=== PATIENT | female | born 1930 | race African-American/Black ===

== ENCOUNTER 2017-03-26 07:36 | Inpatient (IN) | payer MEDICAID, MEDICARE ==
[~2017-03-26] VITALS: Ht 165.1 cm; Wt 68.0 kg
[~2017-03-26 07:36] MED LIST: ACET-3161 GT; ACETAMINOPHEN/COD; ALBU18HF2 INH; BENA40TA3 PO; CALC1TAB51; CALC1TAB96 PO; CLON0.1T PO; DIAZ10TA4 PO; HYDR-4135 PO; HYDR25TA PO; LEVO100T12 PO; OMEP40CA34 PO; PHEN100C12 PO; POTA20TA82 PO; ZOLP10TA6 PO
[2017-03-26] MEDS ORDERED: MORPHINE SULFATE 4 MG/ML CPJ (NOT FOR IM USE) IV STA (08:03)
[2017-03-26] MEDS ORDERED: SODIUM CHLORIDE 0.9% 500 ML IV ONE (08:04)
[2017-03-26 08:23] LABS: BASOPHILS % 0.4 % (0.0-2.0); EOSINOPHILS % 2.7 % (0.0-5.0); HEMATOCRIT. 38.4 % (36.0-48.0); HEMOGLOBIN. 12.8 g/dL (12.0-16.0); LYMPHOCYTES % 15.4 % (20.0-50.0); MEAN CORPUSCULAR HEMOGLOBIN 31.1 pg (28.0-32.0); MEAN CORPUSCULAR VOLUME 93.3 fL (81.0-99.0); MEAN PLATELET VOLUME 8.5 fl (7.4-10.4); MONOCYTES % 5.3 % (2.0-8.0); NEUTROPHILS % 76.2 % (40.0-76.0); PLATELET 304 x1000/uL (130-400); RED BLOOD CELL COUNT 4.12 mill/uL (4.2-5.4); RED CELL DISTRIBUTION WIDTH 15.2 % (11.6-14.6)
[2017-03-26 08:25] LABS: CHLORIDE 106 mEq/L (98-107)
[2017-03-26 08:26] LABS: INR 1.1; PROTHROMBIN TIME 11.7 sec
[2017-03-26] MEDS ORDERED: ONDANSETRON HCL 4MG/2ML VIAL IV ONE (08:30)
[2017-03-26 08:33] LABS: CARBON DIOXIDE 24 mEq/L (21-32)
[2017-03-26 12:00] VITALS: BP 160/81
[2017-03-26] MEDS ORDERED: ASPI-1159 PO (12:50)
[2017-03-26] MEDS ORDERED: QUETIAPINE PO (12:50)
[2017-03-26] MEDS ORDERED: DIAZ10TA4 PO (12:52)
[2017-03-26] MEDS ORDERED: BENA40TA3 PO (12:52)
[2017-03-26] MEDS ORDERED: ROSU20TA PO (13:02)
[2017-03-26] MEDS ORDERED: LEVO100T9 PO (13:02)
[2017-03-26] MEDS ORDERED: SULF1TAB47 PO (13:02)
[2017-03-26] MEDS ORDERED: CLON0.1T PO (13:02)
[2017-03-26] MEDS ORDERED: AMIT100T2 PO (13:02)
[2017-03-26] MEDS ORDERED: CARV3.1242 PO (13:02)
[2017-03-26] MEDS ORDERED: ONDANSETRON HCL 4MG TABLET PO PRN (14:00)
[2017-03-26] MEDS ORDERED: MORPHINE SULFATE 2 MG/ML CPJ (NOT FOR IM USE) IV PRN (15:00)
[2017-03-26] MEDS: DEXT 5%/0.45% NACL 1000ML 1,000 ML IV SCH (15:53)
[2017-03-26] MEDS: ONDANSETRON HCL 4MG/2ML VIAL IV PRN (15:57)
[2017-03-26 16:00] VITALS: BP 190/97
[2017-03-26] MEDS: IPRATROPIUM/ALBUTEROL 0.5-3(2.5)MG/3ML NEB HHN SCH ×3 (16:10→23:49)
[2017-03-26] MEDS ORDERED: CLONIDINE HCL 0.2MG/24HR PATCH TD SCH (17:00)
[2017-03-26 20:00] VITALS: BP 195/90
[2017-03-26] MEDS: ENOXAPARIN 30MG/0.3ML SYR SUBCUT SCH (22:57)
[2017-03-27] VITALS: BP 142/72
[2017-03-27] MEDS: ONDANSETRON HCL 4MG/2ML VIAL IV PRN (00:21)
[2017-03-27] MEDS: DEXT 5%/0.45% NACL 1000ML 1,000 ML IV SCH ×2 (00:51→09:46)
[2017-03-27] MEDS: MORPHINE SULFATE 4 MG/ML CPJ (NOT FOR IM USE) IV PRN (01:00)
[2017-03-27 04:00] VITALS: BP 126/63
[2017-03-27] MEDS: IPRATROPIUM/ALBUTEROL 0.5-3(2.5)MG/3ML NEB HHN SCH ×5 (04:12→20:37)
[2017-03-27 08:00] VITALS: BP 128/64
[2017-03-27 12:00] VITALS: BP 120/61
[2017-03-27 16:00] VITALS: BP 126/59
[2017-03-27 20:00] VITALS: BP 153/68
[2017-03-27] MEDS: ENOXAPARIN 30MG/0.3ML SYR SUBCUT SCH (22:31)
[2017-03-28] VITALS: BP 149/69
[2017-03-28] MEDS: IPRATROPIUM/ALBUTEROL 0.5-3(2.5)MG/3ML NEB HHN SCH ×6 (00:11→21:45)
[2017-03-28] MEDS: DEXT 5%/0.45% NACL 1000ML 1,000 ML IV SCH ×2 (01:57→13:34)
[2017-03-28 04:00] VITALS: BP 148/68
[2017-03-28 06:47] LABS: BASOPHILS % 0.8 % (0.0-2.0); EOSINOPHILS % 7.3 % (0.0-5.0); HEMATOCRIT. 29.6 % (36.0-48.0); HEMOGLOBIN. 9.8 g/dL (12.0-16.0); LYMPHOCYTES % 37.2 % (20.0-50.0); MEAN CORPUSCULAR HEMOGLOBIN 30.8 pg (28.0-32.0); MEAN PLATELET VOLUME 8.5 fl (7.4-10.4); MONOCYTES % 8.1 % (2.0-8.0); NEUTROPHILS % 46.6 % (40.0-76.0); PLATELET 217 x1000/uL (130-400); RED BLOOD CELL COUNT 3.19 mill/uL (4.2-5.4); RED CELL DISTRIBUTION WIDTH 14.4 % (11.6-14.6)
[2017-03-28 07:14] LABS: CARBON DIOXIDE 23 mEq/L (21-32); CHLORIDE 111 mEq/L (98-107); PHOSPHORUS 2.7 mg/dL (2.5-4.9)
[2017-03-28 08:00] VITALS: BP 188/86
[2017-03-28 12:00] VITALS: BP 188/78
[2017-03-28 16:00] VITALS: BP 181/87
[2017-03-28] MEDS ORDERED: LABETALOL 5MG/ML SYR 20 MG/4 ML SYRINGE IV STA (19:11)
[2017-03-28 20:00] VITALS: BP 178/84
[2017-03-28] MEDS: BENAZEPRIL 20MG TABLET PO SCH (21:17)
[2017-03-28] MEDS: PHENYTOIN SODIUM EXTENDED 100MG CAPSULE PO SCH (21:17)
[2017-03-28] MEDS: ENOXAPARIN 30MG/0.3ML SYR SUBCUT SCH (21:18)
[2017-03-28] MEDS: HYDRALAZINE HCL 50MG TABLET PO SCH (21:18)
[2017-03-29] VITALS (7 sets, daily range): BP systolic 140–169; BP diastolic 67–87
[2017-03-29] MEDS: IPRATROPIUM/ALBUTEROL 0.5-3(2.5)MG/3ML NEB HHN SCH ×5 (01:17→21:12)
[2017-03-29] MEDS: MORPHINE SULFATE 4 MG/ML CPJ (NOT FOR IM USE) IV PRN ×3 (02:21→23:54)
[2017-03-29] MEDS: PHENYTOIN SODIUM EXTENDED 100MG CAPSULE PO SCH ×3 (06:32→21:50)
[2017-03-29] MEDS: HYDRALAZINE HCL 50MG TABLET PO SCH ×3 (06:32→21:49)
[2017-03-29] MEDS: DEXT 5%/0.45% NACL 1000ML 1,000 ML IV SCH (06:33)
[2017-03-29] MEDS: BENAZEPRIL 20MG TABLET PO SCH (09:13)
[2017-03-29] MEDS ORDERED: ZOLPIDEM TARTRATE 5MG TABLET PO PRN (21:00)
[2017-03-29] MEDS: ENOXAPARIN 30MG/0.3ML SYR SUBCUT SCH (21:49)
[2017-03-30] MEDS: IPRATROPIUM/ALBUTEROL 0.5-3(2.5)MG/3ML NEB HHN SCH ×4 (01:50→12:45)
[2017-03-30 04:00] VITALS: BP 168/89
[2017-03-30] MEDS: DEXT 5%/0.45% NACL 1000ML 1,000 ML IV SCH (05:33)
[2017-03-30] MEDS: HYDRALAZINE HCL 50MG TABLET PO SCH (06:01)
[2017-03-30] MEDS: PHENYTOIN SODIUM EXTENDED 100MG CAPSULE PO SCH (06:01)
[2017-03-30 06:59] LABS: EOSINOPHILS % 5.6 % (0.0-5.0); HEMATOCRIT. 30.5 % (36.0-48.0); HEMOGLOBIN. 10.3 g/dL (12.0-16.0); LYMPHOCYTES % 41.4 % (20.0-50.0); MEAN CORPUSCULAR VOLUME 92.2 fL (81.0-99.0); MEAN PLATELET VOLUME 8.4 fl (7.4-10.4); PLATELET 256 x1000/uL (130-400); RED BLOOD CELL COUNT 3.31 mill/uL (4.2-5.4); RED CELL DISTRIBUTION WIDTH 14.3 % (11.6-14.6)
[2017-03-30 07:55] LABS: CHLORIDE 109 mEq/L (98-107)
[2017-03-30 08:15] LABS: CARBON DIOXIDE 24 mEq/L (21-32)
[2017-03-30] MEDS: BENAZEPRIL 20MG TABLET PO SCH (09:14)
[2017-03-30 12:35] VITALS: BP 166/82
[2017-03-30 13:18] VITALS: BP 166/82
[2017-03-30] MEDS: MORPHINE SULFATE 4 MG/ML CPJ (NOT FOR IM USE) IV PRN (13:18)
== END 2017-03-30 14:30 | disposition home or self-care (01) | DRG 389 ==
LOC: ER 07:36 → 6EST 10:05 → ENRESERV 10:33
PROVIDERS: ADMIT Internal Medicine; ATTEND Internal Medicine
DX: K56.60 Unspecified intestinal obstruction (principal); J98.11 Atelectasis; R18.8 Other ascites; M19.90 Unspecified osteoarthritis, unspecified site; J44.9 Chronic obstructive pulmonary disease, unspecified; I10 Essential (primary) hypertension; G40.909 Epilepsy, unspecified, not intractable, without status epilepticus; E03.9 Hypothyroidism, unspecified; M54.16 Radiculopathy, lumbar region; F41.9 Anxiety disorder, unspecified; F32.9 Major depressive disorder, single episode, unspecified; M81.0 Age-related osteoporosis without current pathological fracture; D64.9 Anemia, unspecified; E87.6 Hypokalemia; G47.00 Insomnia, unspecified; K56.7 Ileus, unspecified; Z96.659 Presence of unspecified artificial knee joint; G89.29 Other chronic pain; R51 Headache; M54.5 Low back pain; Z88.8 Allergy status to other drugs, medicaments and biological substances; M17.9 Osteoarthritis of knee, unspecified; Z79.899 Other long term (current) drug therapy
CPT/HCPCS: 36415; 74000; 74176; 80048; 80053; 82270; 83690; 83735; 84100; 85025; 85610; 85651; 94640; 96374; 96375; 97162; 99285; C1893; J1650; J2270; J2405; J3490; J7030; J7620

== ENCOUNTER 2018-04-04 16:55 | Inpatient (IN) | payer MEDICARE ==
[~2018-04-04] VITALS: Ht 165.1 cm; Wt 63.5 kg
[~2018-04-04 16:55] MED LIST changes: -ACETAMINOPHEN/COD; -ALBU18HF2 INH; +AMIT100T2 PO; -CALC1TAB51; -CALC1TAB96 PO; -OMEP40CA34 PO; +QUETIAPINE PO; -ZOLP10TA6 PO
[2018-04-04] MEDS ORDERED: DIPHENHYDRAMINE 50MG/ML VIAL IV PRN (19:30)
[2018-04-04 20:00] VITALS: BP 168/87
[2018-04-04] MEDS ORDERED: NIFEDIPINE XL 60MG TAB PO SCH (21:00)
[2018-04-04] MEDS ORDERED: NIFEDIPINE XL 30MG TAB PO SCH (21:00)
[2018-04-04] MEDS: LACTULOSE 20G/30ML UDC PO SCH (21:33)
[2018-04-04] MEDS: POLYETHYLENE GLYCOL 3350 (17GM) 1 DOSE PACK PO SCH (21:34)
[2018-04-04] MEDS: AMITRIPTYLINE 50MG TABLET PO SCH (21:34)
[2018-04-04] MEDS: NIFEDIPINE XL 60MG TAB PO SCH (21:35)
[2018-04-04] MEDS: ENOXAPARIN 40MG/0.4ML SYR SUBCUT SCH (21:35)
[2018-04-04] MEDS: PHENYTOIN SODIUM EXTENDED 100MG CAPSULE PO SCH (21:36)
[2018-04-04] MEDS: HYDRALAZINE HCL 50MG TABLET PO SCH (21:36)
[2018-04-04] MEDS: CLONIDINE 0.1MG TABLET PO SCH (22:44)
[2018-04-05] MEDS: PHENYTOIN SODIUM EXTENDED 100MG CAPSULE PO SCH ×3 (06:00→22:48)
[2018-04-05] MEDS: CLONIDINE 0.1MG TABLET PO SCH ×3 (06:00→22:00)
[2018-04-05] MEDS: HYDRALAZINE HCL 50MG TABLET PO SCH ×3 (06:00→22:00)
[2018-04-05] MEDS: LEVOTHYROXINE SODIUM 100MCG TABLET PO SCH (06:25)
[2018-04-05 08:00] VITALS: BP 132/56
[2018-04-05] MEDS: DOCUSATE SODIUM 100MG CAPSULE PO SCH ×2 (09:00→18:28)
[2018-04-05] MEDS: LACTULOSE 20G/30ML UDC PO SCH ×4 (09:00→22:51)
[2018-04-05 09:25] LABS: BASOPHILS % 1.8 % (0.0-2.0); EOSINOPHILS % 2.8 % (0.0-5.0); HEMATOCRIT. 36.3 % (36.0-48.0); HEMOGLOBIN. 11.8 g/dL (12.0-16.0); LYMPHOCYTES % 36.4 % (20.0-50.0); MEAN CORPUSCULAR HEMOGLOBIN 30.4 pg (28.0-32.0); MEAN CORPUSCULAR VOLUME 93.6 fL (81.0-99.0); MEAN PLATELET VOLUME 8.7 fl (7.4-10.4); MONOCYTES % 5.7 % (2.0-8.0); NEUTROPHILS % 53.3 % (40.0-76.0); PLATELET 407 x1000/uL (130-400); RED BLOOD CELL COUNT 3.88 mill/uL (4.2-5.4); RED CELL DISTRIBUTION WIDTH 15.4 % (11.6-14.6)
[2018-04-05] MEDS: NIFEDIPINE XL 60MG TAB PO SCH ×2 (09:41→21:00)
[2018-04-05] MEDS: BENAZEPRIL 20MG TABLET PO SCH (09:42)
[2018-04-05] MEDS: CYANOCOBALAMIN 1000MCG TABLET PO SCH (09:42)
[2018-04-05] MEDS: PREDNISONE 20MG TABLET PO SCH (09:42)
[2018-04-05] MEDS: QUETIAPINE FUMARATE 25MG TABLET PO SCH (09:43)
[2018-04-05 10:56] LABS: CHLORIDE 108 mEq/L (98-107)
[2018-04-05] MEDS ORDERED: QUETIAPINE FUMARATE 100MG TABLET PO SCH (17:00)
[2018-04-05 20:00] VITALS: BP 117/50
[2018-04-05] MEDS: POLYETHYLENE GLYCOL 3350 (17GM) 1 DOSE PACK PO SCH (21:00)
[2018-04-05] MEDS: AMITRIPTYLINE 50MG TABLET PO SCH (22:48)
[2018-04-05] MEDS: ENOXAPARIN 40MG/0.4ML SYR SUBCUT SCH (22:50)
[2018-04-05 22:53] LABS: CLARITY URINE CLEAR (CLEAR); COLOR URINE YELLOW (YELLOW); KETONES URINE NEGATIVE (NEGATIVE); LEUKOCYTE ESTERASE URINE TRACE (NEGATIVE); NITRITE URINE NEGATIVE (NEGATIVE); OCCULT BLOOD URINE NEGATIVE (NEGATIVE); PROTEIN URINE NEGATIVE (NEGATIVE); SPECIFIC GRAVITY URINE 1.017 (1.005-1.030); UROBILINOGEN URINE 0.2 E.U./dL (0.2-1.0)
[2018-04-06] MEDS: LEVOTHYROXINE SODIUM 100MCG TABLET PO SCH (05:55)
[2018-04-06] MEDS: PHENYTOIN SODIUM EXTENDED 100MG CAPSULE PO SCH ×3 (05:55→21:52)
[2018-04-06] MEDS: CLONIDINE 0.1MG TABLET PO SCH ×3 (05:55→21:53)
[2018-04-06] MEDS: HYDRALAZINE HCL 50MG TABLET PO SCH ×3 (05:56→21:53)
[2018-04-06 06:48] LABS: BASOPHILS % 2.6 % (0.0-2.0); EOSINOPHILS % 2.7 % (0.0-5.0); HEMATOCRIT. 33.8 % (36.0-48.0); HEMOGLOBIN. 11.4 g/dL (12.0-16.0); MEAN CORPUSCULAR HEMOGLOBIN 31.3 pg (28.0-32.0); MEAN CORPUSCULAR VOLUME 92.7 fL (81.0-99.0); MEAN PLATELET VOLUME 8.7 fl (7.4-10.4); MONOCYTES % 6.2 % (2.0-8.0); NEUTROPHILS % 47.5 % (40.0-76.0); PLATELET 425 x1000/uL (130-400); RED BLOOD CELL COUNT 3.65 mill/uL (4.2-5.4); RED CELL DISTRIBUTION WIDTH 14.7 % (11.6-14.6)
[2018-04-06 07:20] LABS: CHLORIDE 106 mEq/L (98-107)
[2018-04-06 08:00] VITALS: BP 136/67
[2018-04-06] MEDS: DOCUSATE SODIUM 100MG CAPSULE PO SCH ×2 (09:53→16:55)
[2018-04-06] MEDS: PREDNISONE 20MG TABLET PO SCH (09:53)
[2018-04-06] MEDS: BENAZEPRIL 20MG TABLET PO SCH (09:54)
[2018-04-06] MEDS: LACTULOSE 20G/30ML UDC PO SCH ×4 (09:54→21:51)
[2018-04-06] MEDS: QUETIAPINE FUMARATE 25MG TABLET PO SCH (09:54)
[2018-04-06] MEDS: CYANOCOBALAMIN 1000MCG TABLET PO SCH (09:54)
[2018-04-06] MEDS: NIFEDIPINE XL 60MG TAB PO SCH ×2 (10:49→21:00)
[2018-04-06] MEDS: HALOPERIDOL 1MG TABLET PO PRN (18:11)
[2018-04-06 20:00] VITALS: BP 142/68
[2018-04-06] MEDS: POLYETHYLENE GLYCOL 3350 (17GM) 1 DOSE PACK PO SCH (21:00)
[2018-04-06] MEDS: ENOXAPARIN 40MG/0.4ML SYR SUBCUT SCH (21:51)
[2018-04-06] MEDS: QUETIAPINE FUMARATE 100MG TABLET PO SCH (21:52)
[2018-04-06] MEDS: AMITRIPTYLINE 50MG TABLET PO SCH (21:52)
[2018-04-07] MEDS: HYDROCODONE/ACETAMINOPHEN 5/325MG TABLET PO PRN (01:24)
[2018-04-07] MEDS: HYDRALAZINE HCL 50MG TABLET PO SCH ×3 (05:58→22:00)
[2018-04-07] MEDS: PHENYTOIN SODIUM EXTENDED 100MG CAPSULE PO SCH ×3 (05:58→22:15)
[2018-04-07] MEDS: CLONIDINE 0.1MG TABLET PO SCH ×3 (05:59→22:00)
[2018-04-07] MEDS: LEVOTHYROXINE SODIUM 100MCG TABLET PO SCH (05:59)
[2018-04-07 07:54] LABS: BASOPHILS % 1.4 % (0.0-2.0); EOSINOPHILS % 3.6 % (0.0-5.0); HEMATOCRIT. 33.8 % (36.0-48.0); HEMOGLOBIN. 11.3 g/dL (12.0-16.0); MEAN CORPUSCULAR HEMOGLOBIN 30.9 pg (28.0-32.0); MEAN CORPUSCULAR VOLUME 92.6 fL (81.0-99.0); MEAN PLATELET VOLUME 8.5 fl (7.4-10.4); MONOCYTES % 6.5 % (2.0-8.0); NEUTROPHILS % 51.5 % (40.0-76.0); PLATELET 404 x1000/uL (130-400); RED BLOOD CELL COUNT 3.65 mill/uL (4.2-5.4); RED CELL DISTRIBUTION WIDTH 14.9 % (11.6-14.6)
[2018-04-07 08:00] VITALS: BP 114/59
[2018-04-07 08:20] LABS: CHLORIDE 107 mEq/L (98-107)
[2018-04-07 08:27] LABS: PHOSPHORUS 3.6 mg/dL (2.5-4.9)
[2018-04-07 08:28] LABS: HDL CHOLESTEROL 72 mg/dL (40-59); LDL CHOLESTEROL 97 mg/dL (5-100)
[2018-04-07 08:33] LABS: TOTAL IRON BINDING CAPACITY 284 ug/dL (250-450)
[2018-04-07] MEDS: BENAZEPRIL 20MG TABLET PO SCH (08:44)
[2018-04-07] MEDS: DOCUSATE SODIUM 100MG CAPSULE PO SCH ×2 (08:44→17:00)
[2018-04-07] MEDS: CYANOCOBALAMIN 1000MCG TABLET PO SCH (08:45)
[2018-04-07] MEDS: QUETIAPINE FUMARATE 25MG TABLET PO SCH (08:45)
[2018-04-07] MEDS: PREDNISONE 20MG TABLET PO SCH (08:45)
[2018-04-07] MEDS: NIFEDIPINE XL 60MG TAB PO SCH ×2 (08:45→21:00)
[2018-04-07] MEDS: LACTULOSE 20G/30ML UDC PO SCH ×4 (08:50→21:00)
[2018-04-07 09:40] LABS: FOLIC ACID (FOLATE) SERUM 5.7 ng/mL (>5.38)
[2018-04-07 20:00] VITALS: BP 138/69
[2018-04-07] MEDS: POLYETHYLENE GLYCOL 3350 (17GM) 1 DOSE PACK PO SCH (21:00)
[2018-04-07] MEDS: AMITRIPTYLINE 50MG TABLET PO SCH (22:15)
[2018-04-07] MEDS: ENOXAPARIN 40MG/0.4ML SYR SUBCUT SCH (22:15)
[2018-04-07] MEDS: QUETIAPINE FUMARATE 100MG TABLET PO SCH (22:15)
[2018-04-08] MEDS: CLONIDINE 0.1MG TABLET PO SCH ×3 (06:00→22:00)
[2018-04-08] MEDS: HYDRALAZINE HCL 50MG TABLET PO SCH ×3 (06:00→22:00)
[2018-04-08] MEDS: PHENYTOIN SODIUM EXTENDED 100MG CAPSULE PO SCH ×3 (06:27→22:48)
[2018-04-08] MEDS ORDERED: LEVOTHYROXINE SODIUM 112MCG TABLET PO SCH (07:00)
[2018-04-08 08:00] VITALS: BP 131/62
[2018-04-08] MEDS: LACTULOSE 20G/30ML UDC PO SCH ×4 (09:40→21:00)
[2018-04-08] MEDS: PREDNISONE 20MG TABLET PO SCH (09:41)
[2018-04-08] MEDS: BENAZEPRIL 20MG TABLET PO SCH (09:41)
[2018-04-08] MEDS: NIFEDIPINE XL 60MG TAB PO SCH ×2 (09:41→21:00)
[2018-04-08] MEDS: DOCUSATE SODIUM 100MG CAPSULE PO SCH ×2 (09:41→18:02)
[2018-04-08] MEDS: QUETIAPINE FUMARATE 25MG TABLET PO SCH (09:42)
[2018-04-08] MEDS: CYANOCOBALAMIN 1000MCG TABLET PO SCH (09:42)
[2018-04-08] MEDS ORDERED: PHENYTOIN SODIUM 800 MG in SODIUM CHLORIDE 0.9% 100 ML IV NR (11:30)
[2018-04-08] MEDS: POLYETHYLENE GLYCOL 3350 (17GM) 1 DOSE PACK PO SCH (21:00)
[2018-04-08 22:00] VITALS: BP 133/67
[2018-04-08] MEDS: AMITRIPTYLINE 50MG TABLET PO SCH (22:45)
[2018-04-08] MEDS: QUETIAPINE FUMARATE 100MG TABLET PO SCH (22:46)
[2018-04-08] MEDS: ENOXAPARIN 40MG/0.4ML SYR SUBCUT SCH (22:47)
[2018-04-09] MEDS: HALOPERIDOL 1MG TABLET PO PRN (01:06)
[2018-04-09 01:07] VITALS: BP 129/69
[2018-04-09] MEDS: CLONIDINE 0.1MG TABLET PO SCH ×3 (06:00→22:00)
[2018-04-09] MEDS: HYDRALAZINE HCL 50MG TABLET PO SCH ×3 (06:05→22:00)
[2018-04-09] MEDS: PHENYTOIN SODIUM EXTENDED 100MG CAPSULE PO SCH ×3 (06:06→22:14)
[2018-04-09 06:51] LABS: BASOPHILS % 1.8 % (0.0-2.0); EOSINOPHILS % 3.8 % (0.0-5.0); HEMATOCRIT. 34.6 % (36.0-48.0); HEMOGLOBIN. 11.4 g/dL (12.0-16.0); LYMPHOCYTES % 39.1 % (20.0-50.0); MEAN CORPUSCULAR HEMOGLOBIN 30.8 pg (28.0-32.0); MEAN CORPUSCULAR VOLUME 93.4 fL (81.0-99.0); MEAN PLATELET VOLUME 8.3 fl (7.4-10.4); MONOCYTES % 6.5 % (2.0-8.0); NEUTROPHILS % 48.8 % (40.0-76.0); PLATELET 389 x1000/uL (130-400); RED CELL DISTRIBUTION WIDTH 15.1 % (11.6-14.6)
[2018-04-09 07:09] LABS: CHLORIDE 104 mEq/L (98-107)
[2018-04-09 07:13] LABS: PHOSPHORUS 3.4 mg/dL (2.5-4.9)
[2018-04-09] MEDS: LEVOTHYROXINE SODIUM 112MCG TABLET PO SCH (07:58)
[2018-04-09 08:00] VITALS: BP 139/75
[2018-04-09] MEDS: LACTULOSE 20G/30ML UDC PO SCH ×4 (09:00→22:13)
[2018-04-09] MEDS: PREDNISONE 20MG TABLET PO SCH (10:53)
[2018-04-09] MEDS: NIFEDIPINE XL 60MG TAB PO SCH ×2 (10:53→22:12)
[2018-04-09] MEDS: DOCUSATE SODIUM 100MG CAPSULE PO SCH ×2 (10:54→17:00)
[2018-04-09] MEDS: CYANOCOBALAMIN 1000MCG TABLET PO SCH (10:54)
[2018-04-09] MEDS: QUETIAPINE FUMARATE 25MG TABLET PO SCH (10:54)
[2018-04-09] MEDS: BENAZEPRIL 20MG TABLET PO SCH (10:54)
[2018-04-09] MEDS: HYDROCODONE/ACETAMINOPHEN 5/325MG TABLET PO PRN (11:03)
[2018-04-09 20:00] VITALS: BP 135/71
[2018-04-09] MEDS: ENOXAPARIN 40MG/0.4ML SYR SUBCUT SCH (21:00)
[2018-04-09] MEDS: POLYETHYLENE GLYCOL 3350 (17GM) 1 DOSE PACK PO SCH (22:10)
[2018-04-09] MEDS: AMITRIPTYLINE 50MG TABLET PO SCH (22:11)
[2018-04-09] MEDS: QUETIAPINE FUMARATE 100MG TABLET PO SCH (22:14)
[2018-04-10] MEDS: LEVOTHYROXINE SODIUM 112MCG TABLET PO SCH (06:34)
[2018-04-10] MEDS: HYDRALAZINE HCL 50MG TABLET PO SCH ×3 (06:35→22:17)
[2018-04-10] MEDS: CLONIDINE 0.1MG TABLET PO SCH ×3 (06:35→22:16)
[2018-04-10] MEDS: PHENYTOIN SODIUM EXTENDED 100MG CAPSULE PO SCH ×3 (06:36→22:15)
[2018-04-10 08:00] VITALS: BP 145/71
[2018-04-10] MEDS: NIFEDIPINE XL 60MG TAB PO SCH ×2 (08:04→22:17)
[2018-04-10] MEDS: LACTULOSE 20G/30ML UDC PO SCH ×4 (08:04→22:13)
[2018-04-10] MEDS: QUETIAPINE FUMARATE 25MG TABLET PO SCH (08:04)
[2018-04-10] MEDS: BENAZEPRIL 20MG TABLET PO SCH (08:05)
[2018-04-10] MEDS: DOCUSATE SODIUM 100MG CAPSULE PO SCH ×2 (08:05→17:55)
[2018-04-10] MEDS: CYANOCOBALAMIN 1000MCG TABLET PO SCH (08:05)
[2018-04-10] MEDS: PREDNISONE 20MG TABLET PO SCH (08:05)
[2018-04-10 20:00] VITALS: BP 150/67
[2018-04-10] MEDS: QUETIAPINE FUMARATE 100MG TABLET PO SCH (22:08)
[2018-04-10] MEDS: AMITRIPTYLINE 50MG TABLET PO SCH (22:14)
[2018-04-10] MEDS: POLYETHYLENE GLYCOL 3350 (17GM) 1 DOSE PACK PO SCH (22:18)
[2018-04-10] MEDS: ENOXAPARIN 40MG/0.4ML SYR SUBCUT SCH (22:20)
[2018-04-11] MEDS: CLONIDINE 0.1MG TABLET PO SCH ×2 (06:00→14:22)
[2018-04-11] MEDS: HYDRALAZINE HCL 50MG TABLET PO SCH ×2 (06:20→14:22)
[2018-04-11] MEDS: PHENYTOIN SODIUM EXTENDED 100MG CAPSULE PO SCH ×3 (06:22→21:17)
[2018-04-11] MEDS: LEVOTHYROXINE SODIUM 112MCG TABLET PO SCH (06:24)
[2018-04-11 08:00] VITALS: BP 149/75
[2018-04-11] MEDS: QUETIAPINE FUMARATE 25MG TABLET PO SCH (08:18)
[2018-04-11] MEDS: PREDNISONE 20MG TABLET PO SCH (08:18)
[2018-04-11] MEDS: DOCUSATE SODIUM 100MG CAPSULE PO SCH ×2 (08:18→16:53)
[2018-04-11] MEDS: CYANOCOBALAMIN 1000MCG TABLET PO SCH (08:18)
[2018-04-11] MEDS: NIFEDIPINE XL 60MG TAB PO SCH ×2 (08:18→21:16)
[2018-04-11] MEDS: BENAZEPRIL 20MG TABLET PO SCH (08:19)
[2018-04-11] MEDS: LACTULOSE 20G/30ML UDC PO SCH ×4 (08:19→21:00)
[2018-04-11 08:51] LABS: BASOPHILS % 0.5 % (0.0-2.0); EOSINOPHILS % 3.3 % (0.0-5.0); HEMATOCRIT. 35.8 % (36.0-48.0); HEMOGLOBIN. 11.8 g/dL (12.0-16.0); LYMPHOCYTES % 41.1 % (20.0-50.0); MEAN CORPUSCULAR HEMOGLOBIN 30.7 pg (28.0-32.0); MEAN CORPUSCULAR VOLUME 93.4 fL (81.0-99.0); MEAN PLATELET VOLUME 8.2 fl (7.4-10.4); MONOCYTES % 5.5 % (2.0-8.0); NEUTROPHILS % 49.6 % (40.0-76.0); PLATELET 434 x1000/uL (130-400); RED BLOOD CELL COUNT 3.83 mill/uL (4.2-5.4); RED CELL DISTRIBUTION WIDTH 15.1 % (11.6-14.6)
[2018-04-11 08:56] LABS: CHLORIDE 103 mEq/L (98-107)
[2018-04-11 19:05] LABS: 25-HYDROXY VITAMIN D3 5.7 ng/mL (.)
[2018-04-11 20:00] VITALS: BP 125/59
[2018-04-11] MEDS: POLYETHYLENE GLYCOL 3350 (17GM) 1 DOSE PACK PO SCH (21:00)
[2018-04-11] MEDS: ENOXAPARIN 40MG/0.4ML SYR SUBCUT SCH (21:15)
[2018-04-11] MEDS: AMITRIPTYLINE 50MG TABLET PO SCH (21:16)
[2018-04-11] MEDS: QUETIAPINE FUMARATE 100MG TABLET PO SCH (21:17)
[2018-04-11 22:35] VITALS: BP 120/69
[2018-04-12] MEDS: HYDRALAZINE HCL 50MG TABLET PO SCH ×4 (01:13→22:02)
[2018-04-12] MEDS: CLONIDINE 0.1MG TABLET PO SCH ×4 (01:15→23:57)
[2018-04-12] MEDS: LEVOTHYROXINE SODIUM 112MCG TABLET PO SCH (06:20)
[2018-04-12] MEDS: PHENYTOIN SODIUM EXTENDED 100MG CAPSULE PO SCH ×3 (06:20→22:02)
[2018-04-12 08:00] VITALS: BP 133/73
[2018-04-12] MEDS: DOCUSATE SODIUM 100MG CAPSULE PO SCH ×2 (08:46→17:00)
[2018-04-12] MEDS: CYANOCOBALAMIN 1000MCG TABLET PO SCH (08:46)
[2018-04-12] MEDS: PREDNISONE 20MG TABLET PO SCH (08:47)
[2018-04-12] MEDS: QUETIAPINE FUMARATE 25MG TABLET PO SCH (08:47)
[2018-04-12] MEDS: NIFEDIPINE XL 60MG TAB PO SCH ×2 (08:47→21:07)
[2018-04-12] MEDS: BENAZEPRIL 20MG TABLET PO SCH (08:47)
[2018-04-12] MEDS: LACTULOSE 20G/30ML UDC PO SCH ×4 (08:48→21:00)
[2018-04-12 10:28] LABS: BASOPHILS % 1.6 % (0.0-2.0); EOSINOPHILS % 4.4 % (0.0-5.0); HEMATOCRIT. 35.9 % (36.0-48.0); HEMOGLOBIN. 11.7 g/dL (12.0-16.0); MEAN CORPUSCULAR HEMOGLOBIN 30.4 pg (28.0-32.0); MEAN CORPUSCULAR VOLUME 93.2 fL (81.0-99.0); MEAN PLATELET VOLUME 8.2 fl (7.4-10.4); MONOCYTES % 5.1 % (2.0-8.0); NEUTROPHILS % 54.9 % (40.0-76.0); PLATELET 418 x1000/uL (130-400); RED BLOOD CELL COUNT 3.85 mill/uL (4.2-5.4); RED CELL DISTRIBUTION WIDTH 15.1 % (11.6-14.6)
[2018-04-12 10:55] LABS: CHLORIDE 103 mEq/L (98-107)
[2018-04-12] MEDS ORDERED: ERGOCALCIFEROL 50000UNITS CAPSULE PO SCH (13:00)
[2018-04-12 20:00] VITALS: BP 141/72
[2018-04-12] MEDS: AMITRIPTYLINE 50MG TABLET PO SCH (21:07)
[2018-04-12] MEDS: QUETIAPINE FUMARATE 100MG TABLET PO SCH (21:07)
[2018-04-12] MEDS: POLYETHYLENE GLYCOL 3350 (17GM) 1 DOSE PACK PO SCH (21:14)
[2018-04-12] MEDS: ENOXAPARIN 40MG/0.4ML SYR SUBCUT SCH (21:16)
[2018-04-12 23:10] VITALS: BP 122/51
[2018-04-12 23:58] VITALS: BP 150/69
[2018-04-13] MEDS: HYDRALAZINE HCL 50MG TABLET PO SCH ×3 (06:07→22:39)
[2018-04-13] MEDS: PHENYTOIN SODIUM EXTENDED 100MG CAPSULE PO SCH ×3 (06:07→22:39)
[2018-04-13] MEDS: LEVOTHYROXINE SODIUM 112MCG TABLET PO SCH (06:07)
[2018-04-13 07:41] VITALS: BP 136/71
[2018-04-13] MEDS: CLONIDINE 0.1MG TABLET PO SCH ×3 (07:41→22:00)
[2018-04-13 08:00] VITALS: BP 142/82
[2018-04-13] MEDS: DOCUSATE SODIUM 100MG CAPSULE PO SCH ×2 (08:34→17:20)
[2018-04-13] MEDS: QUETIAPINE FUMARATE 25MG TABLET PO SCH (08:34)
[2018-04-13] MEDS: NIFEDIPINE XL 60MG TAB PO SCH ×2 (08:35→21:29)
[2018-04-13] MEDS: CYANOCOBALAMIN 1000MCG TABLET PO SCH (08:35)
[2018-04-13] MEDS: PREDNISONE 20MG TABLET PO SCH (08:35)
[2018-04-13] MEDS: BENAZEPRIL 20MG TABLET PO SCH (08:36)
[2018-04-13] MEDS: LACTULOSE 20G/30ML UDC PO SCH ×4 (08:42→21:00)
[2018-04-13] MEDS ORDERED: ACETAMINOPHEN 325MG TABLET PO PRN (11:00)
[2018-04-13 20:00] VITALS: BP 152/89
[2018-04-13] MEDS: POLYETHYLENE GLYCOL 3350 (17GM) 1 DOSE PACK PO SCH (21:00)
[2018-04-13] MEDS: QUETIAPINE FUMARATE 100MG TABLET PO SCH (21:29)
[2018-04-13] MEDS: AMITRIPTYLINE 50MG TABLET PO SCH (21:29)
[2018-04-13] MEDS: ENOXAPARIN 40MG/0.4ML SYR SUBCUT SCH (21:30)
[2018-04-13 22:39] VITALS: BP 141/68
[2018-04-14] MEDS: HYDRALAZINE HCL 50MG TABLET PO SCH ×3 (06:16→22:00)
[2018-04-14] MEDS: LEVOTHYROXINE SODIUM 112MCG TABLET PO SCH (06:16)
[2018-04-14] MEDS: PHENYTOIN SODIUM EXTENDED 100MG CAPSULE PO SCH ×3 (06:16→22:03)
[2018-04-14] MEDS: CLONIDINE 0.1MG TABLET PO SCH ×3 (07:37→22:00)
[2018-04-14 07:38] VITALS: BP 136/67
[2018-04-14] MEDS: QUETIAPINE FUMARATE 25MG TABLET PO SCH (08:52)
[2018-04-14] MEDS: BENAZEPRIL 20MG TABLET PO SCH (08:53)
[2018-04-14] MEDS: CYANOCOBALAMIN 1000MCG TABLET PO SCH (08:53)
[2018-04-14] MEDS: PREDNISONE 20MG TABLET PO SCH (08:53)
[2018-04-14] MEDS: DOCUSATE SODIUM 100MG CAPSULE PO SCH ×2 (08:53→17:00)
[2018-04-14] MEDS: NIFEDIPINE XL 60MG TAB PO SCH ×2 (08:53→22:03)
[2018-04-14] MEDS: LACTULOSE 20G/30ML UDC PO SCH ×4 (08:54→21:00)
[2018-04-14 20:48] VITALS: BP 135/82
[2018-04-14] MEDS: POLYETHYLENE GLYCOL 3350 (17GM) 1 DOSE PACK PO SCH (21:00)
[2018-04-14] MEDS: ENOXAPARIN 40MG/0.4ML SYR SUBCUT SCH (22:03)
[2018-04-14] MEDS: AMITRIPTYLINE 50MG TABLET PO SCH (22:03)
[2018-04-14] MEDS: QUETIAPINE FUMARATE 100MG TABLET PO SCH (22:03)
[2018-04-14 23:23] VITALS: BP 108/61
[2018-04-15] MEDS: LEVOTHYROXINE SODIUM 112MCG TABLET PO SCH (06:00)
[2018-04-15] MEDS: HYDRALAZINE HCL 50MG TABLET PO SCH ×3 (06:00→22:00)
[2018-04-15] MEDS: PHENYTOIN SODIUM EXTENDED 100MG CAPSULE PO SCH ×3 (06:03→22:19)
[2018-04-15 06:07] VITALS: BP 139/77
[2018-04-15 07:26] LABS: BASOPHILS % 1.2 % (0.0-2.0); HEMATOCRIT. 30.9 % (36.0-48.0); HEMOGLOBIN. 10.4 g/dL (12.0-16.0); LYMPHOCYTES % 41.7 % (20.0-50.0); MEAN CORPUSCULAR VOLUME 92.1 fL (81.0-99.0); MEAN PLATELET VOLUME 8.4 fl (7.4-10.4); MONOCYTES % 5.7 % (2.0-8.0); NEUTROPHILS % 48.4 % (40.0-76.0); PLATELET 323 x1000/uL (130-400); RED BLOOD CELL COUNT 3.36 mill/uL (4.2-5.4); RED CELL DISTRIBUTION WIDTH 15.4 % (11.6-14.6)
[2018-04-15] MEDS: CLONIDINE 0.1MG TABLET PO SCH ×3 (07:38→22:00)
[2018-04-15 07:44] LABS: CHLORIDE 106 mEq/L (98-107)
[2018-04-15 08:01] LABS: PHOSPHORUS 3.9 mg/dL (2.5-4.9)
[2018-04-15] MEDS: LACTULOSE 20G/30ML UDC PO SCH ×4 (08:53→22:19)
[2018-04-15] MEDS: CYANOCOBALAMIN 1000MCG TABLET PO SCH (08:56)
[2018-04-15] MEDS: QUETIAPINE FUMARATE 25MG TABLET PO SCH (08:56)
[2018-04-15] MEDS: DOCUSATE SODIUM 100MG CAPSULE PO SCH ×2 (08:56→17:11)
[2018-04-15] MEDS: PREDNISONE 20MG TABLET PO SCH (08:56)
[2018-04-15] MEDS: NIFEDIPINE XL 60MG TAB PO SCH ×2 (08:57→21:00)
[2018-04-15] MEDS: BENAZEPRIL 20MG TABLET PO SCH (08:57)
[2018-04-15 20:00] VITALS: BP 133/68
[2018-04-15] MEDS: POLYETHYLENE GLYCOL 3350 (17GM) 1 DOSE PACK PO SCH (21:00)
[2018-04-15] MEDS: AMITRIPTYLINE 50MG TABLET PO SCH (22:19)
[2018-04-15] MEDS: QUETIAPINE FUMARATE 100MG TABLET PO SCH (22:20)
[2018-04-15] MEDS: ENOXAPARIN 40MG/0.4ML SYR SUBCUT SCH (22:20)
[2018-04-16] MEDS: PHENYTOIN SODIUM EXTENDED 100MG CAPSULE PO SCH ×2 (07:03→13:08)
[2018-04-16] MEDS: LEVOTHYROXINE SODIUM 112MCG TABLET PO SCH (07:03)
[2018-04-16] MEDS: HYDRALAZINE HCL 50MG TABLET PO SCH ×2 (07:03→13:08)
[2018-04-16] MEDS: CLONIDINE 0.1MG TABLET PO SCH ×2 (07:03→13:09)
[2018-04-16 08:00] VITALS: BP 122/64
[2018-04-16] MEDS: LACTULOSE 20G/30ML UDC PO SCH ×3 (08:14→17:16)
[2018-04-16] MEDS: PREDNISONE 20MG TABLET PO SCH (08:15)
[2018-04-16] MEDS: DOCUSATE SODIUM 100MG CAPSULE PO SCH ×2 (08:15→17:16)
[2018-04-16] MEDS: QUETIAPINE FUMARATE 25MG TABLET PO SCH (08:15)
[2018-04-16] MEDS: CYANOCOBALAMIN 1000MCG TABLET PO SCH (08:15)
[2018-04-16] MEDS: NIFEDIPINE XL 60MG TAB PO SCH (08:15)
[2018-04-16] MEDS: BENAZEPRIL 20MG TABLET PO SCH (08:17)
[2018-04-16 13:56] VITALS: BP 132/68
== END 2018-04-16 18:50 | disposition home health service (06) | DRG 92 ==
PROVIDERS: ADMIT Physical Medicine & Rehabilitation Spinal Cord Injury Medicine; ATTEND Internal Medicine
DX: G92 Toxic encephalopathy (principal); F33.1 Major depressive disorder, recurrent, moderate; D51.9 Vitamin B12 deficiency anemia, unspecified; F03.90 Unspecified dementia, unspecified severity, without behavioral disturbance, psychotic disturbance, mood disturbance, and anxiety; I11.9 Hypertensive heart disease without heart failure; E03.9 Hypothyroidism, unspecified; G40.909 Epilepsy, unspecified, not intractable, without status epilepticus; R00.1 Bradycardia, unspecified; R41.89 Other symptoms and signs involving cognitive functions and awareness; J45.909 Unspecified asthma, uncomplicated; M19.90 Unspecified osteoarthritis, unspecified site; E78.5 Hyperlipidemia, unspecified; G89.4 Chronic pain syndrome; Z60.2 Problems related to living alone; R26.9 Unspecified abnormalities of gait and mobility; E78.00 Pure hypercholesterolemia, unspecified; I45.9 Conduction disorder, unspecified; Z95.0 Presence of cardiac pacemaker; Z87.11 Personal history of peptic ulcer disease; Z88.8 Allergy status to other drugs, medicaments and biological substances; Z79.899 Other long term (current) drug therapy; Z91.81 History of falling; E55.9 Vitamin D deficiency, unspecified; F41.1 Generalized anxiety disorder
CPT/HCPCS: 36415; 80048; 80053; 80061; 80185; 81003; 82306; 82607; 82728; 82746; 82962; 83540; 83550; 83735; 84100; 84134; 84443; 84630; 85025; 87086; 92523; 92610; 93005; 93970; 97110; 97112; 97116; 97162; 97167; 97530; 97535; C1893; G0515; J1165; J1650; J7050; J7512

== ENCOUNTER 2018-08-01 14:35 | Inpatient (IN) | payer MEDICARE, MEDICAID ==
[~2018-08-01] VITALS: Ht 167.6 cm; Wt 61.2 kg
[2018-08-01] MEDS ORDERED: NITROGLYCERIN OINT 1GM/INCH UDPKT TD ONE (15:30)
[2018-08-01] MEDS ORDERED: ASPIRIN 325MG TABLET PO ONE (15:30)
[2018-08-01 16:41] LABS: BASOPHILS % 0.8 % (0.0-2.0); EOSINOPHILS % 1.8 % (0.0-5.0); HEMATOCRIT. 38.3 % (36.0-48.0); HEMOGLOBIN. 13.1 g/dL (12.0-16.0); LYMPHOCYTES % 23.7 % (20.0-50.0); MEAN CORPUSCULAR HEMOGLOBIN 32.4 pg (28.0-32.0); MEAN CORPUSCULAR VOLUME 94.8 fL (81.0-99.0); MEAN PLATELET VOLUME 8.3 fl (7.4-10.4); NEUTROPHILS % 68.7 % (40.0-76.0); PLATELET 320 x1000/uL (130-400); RED BLOOD CELL COUNT 4.03 mill/uL (4.2-5.4); RED CELL DISTRIBUTION WIDTH 14.5 % (11.6-14.6)
[2018-08-01 16:47] LABS: CHLORIDE 103 mEq/L (98-107)
[2018-08-01 19:14] LABS: PROTHROMBIN TIME 10.4 sec (9.1-11.1)
[2018-08-01 20:44] VITALS: BP 126/67
[2018-08-01] MEDS ORDERED: ACETAMINOPHEN 325MG TABLET PO PRN (21:45)
[2018-08-01] MEDS ORDERED: QUET100T33 PO (22:21)
[2018-08-01] MEDS ORDERED: AMITRIPTYLINE HCL 50 MG PO SCH (22:30)
[2018-08-01] MEDS ORDERED: DIAZ10TA4 PO (22:46)
[2018-08-01] MEDS ORDERED: AMIT25TA9 PO (22:46)
[2018-08-01] MEDS ORDERED: LEVO100T9 PO (22:49)
[2018-08-01] MEDS ORDERED: POTA20TA82 PO (22:53)
[2018-08-01] MEDS ORDERED: HYDR-4135 PO (22:53)
[2018-08-01] MEDS ORDERED: PHEN100C4 PO (22:54)
[2018-08-01] MEDS ORDERED: HYDR12.529 PO (22:54)
[2018-08-01] MEDS ORDERED: BENA40TA9 PO (22:56)
[2018-08-01] MEDS ORDERED: ACET5SOL2 PO (23:07)
[2018-08-01] MEDS ORDERED: ACETAMINOPHEN WITH CODEINE 300/30MG TABLET PO PRN (23:30)
[2018-08-01] MEDS ORDERED: DIAZEPAM 5 MG TABLET PO PRN (23:30)
[2018-08-02] VITALS (8 sets, daily range): BP systolic 134–178; BP diastolic 64–90
[2018-08-02] MEDS: HYDRALAZINE HCL 50MG TABLET PO SCH ×4 (00:33→21:34)
[2018-08-02] MEDS: HYDROCODONE/ACETAMINOPHEN 10/325MG TABLET PO PRN ×2 (04:36→14:42)
[2018-08-02] MEDS: PHENYTOIN SODIUM EXTENDED 100MG CAPSULE PO SCH ×3 (08:42→18:20)
[2018-08-02] MEDS: POTASSIUM CHLORIDE 20MEQ TABLET SR PO SCH ×2 (08:42→18:20)
[2018-08-02] MEDS: LEVOTHYROXINE SODIUM 100MCG TABLET PO SCH (08:42)
[2018-08-02] MEDS: HYDROCHLOROTHIAZIDE 12.5MG CAPSULE PO SCH (08:43)
[2018-08-02] MEDS: METHYLPREDNISOLONE 4MG TABLET PO SCH (08:43)
[2018-08-02] MEDS: ENOXAPARIN 40MG/0.4ML SYR SUBCUT SCH (08:44)
[2018-08-02] MEDS: BENAZEPRIL 10MG TABLET PO SCH (08:47)
[2018-08-02] MEDS ORDERED: MEDICATION NOT ON FORMULARY EA (Benazepril Hcl 40 MG) PO SCH (09:00)
[2018-08-02] MEDS ORDERED: MEDICATION NOT ON FORMULARY EA (Hydralazine Hcl 50 MG) PO SCH (09:00)
[2018-08-02] MEDS ORDERED: MEDICATION NOT ON FORMULARY EA (Hydrochlorothiazide 12.5 MG) PO SCH (09:00)
[2018-08-02] MEDS ORDERED: DIAZEPAM 10 MG PO SCH (09:00)
[2018-08-02 10:44] LABS: CREATINE KINASE 80 IU/L (26-192)
[2018-08-02 10:45] LABS: CREATINE KINASE MB FRACTION < 1.0 ng/mL (0.5-3.6)
[2018-08-02 13:18] LABS: HEMATOCRIT. 36.1 % (36.0-48.0); HEMOGLOBIN. 12.2 g/dL (12.0-16.0); MEAN CORPUSCULAR HEMOGLOBIN 31.8 pg (28.0-32.0); MEAN CORPUSCULAR VOLUME 94.4 fL (81.0-99.0); RED BLOOD CELL COUNT 3.82 mill/uL (4.2-5.4); RED CELL DISTRIBUTION WIDTH 14.3 % (11.6-14.6)
[2018-08-02 13:58] LABS: CREATINE KINASE 85 IU/L (26-192); CREATINE KINASE MB FRACTION < 1.0 ng/mL (0.5-3.6)
[2018-08-02 15:30] LABS: PLATELET 389 x1000/uL (130-400)
[2018-08-02 15:31] LABS: MEAN PLATELET VOLUME 9.3 fl (7.4-10.4)
[2018-08-02 16:00] LABS: PLATELET ESTIMATE NORMAL
[2018-08-02] MEDS: AMITRIPTYLINE 50MG TABLET PO SCH (21:33)
[2018-08-03] VITALS (7 sets, daily range): BP systolic 109–189; BP diastolic 61–84
[2018-08-03 03:37] LABS: CREATINE KINASE 65 IU/L (26-192)
[2018-08-03 03:38] LABS: CREATINE KINASE MB FRACTION < 1.0 ng/mL (0.5-3.6)
[2018-08-03] MEDS: HYDRALAZINE HCL 50MG TABLET PO SCH ×3 (04:32→21:29)
[2018-08-03] MEDS: LEVOTHYROXINE SODIUM 100MCG TABLET PO SCH (07:56)
[2018-08-03] MEDS: HYDROCODONE/ACETAMINOPHEN 10/325MG TABLET PO PRN (07:57)
[2018-08-03] MEDS: BENAZEPRIL 10MG TABLET PO SCH (08:58)
[2018-08-03] MEDS: POTASSIUM CHLORIDE 20MEQ TABLET SR PO SCH ×2 (08:58→17:01)
[2018-08-03] MEDS: HYDROCHLOROTHIAZIDE 12.5MG CAPSULE PO SCH (08:59)
[2018-08-03] MEDS: PHENYTOIN SODIUM EXTENDED 100MG CAPSULE PO SCH ×3 (08:59→17:01)
[2018-08-03] MEDS: ENOXAPARIN 40MG/0.4ML SYR SUBCUT SCH (09:01)
[2018-08-03] MEDS: METHYLPREDNISOLONE 4MG TABLET PO SCH (09:03)
[2018-08-03] MEDS: AMITRIPTYLINE 50MG TABLET PO SCH (21:29)
[2018-08-04] VITALS: BP 191/90
[2018-08-04 04:00] VITALS: BP 140/66
[2018-08-04] MEDS: HYDRALAZINE HCL 50MG TABLET PO SCH ×3 (06:18→20:23)
[2018-08-04 08:00] VITALS: BP 149/71
[2018-08-04] MEDS: HYDROCHLOROTHIAZIDE 12.5MG CAPSULE PO SCH (09:05)
[2018-08-04] MEDS: BENAZEPRIL 10MG TABLET PO SCH (09:06)
[2018-08-04] MEDS: POTASSIUM CHLORIDE 20MEQ TABLET SR PO SCH ×2 (09:06→17:28)
[2018-08-04] MEDS: PHENYTOIN SODIUM EXTENDED 100MG CAPSULE PO SCH ×3 (09:06→17:28)
[2018-08-04] MEDS: METHYLPREDNISOLONE 4MG TABLET PO SCH (09:06)
[2018-08-04] MEDS: LEVOTHYROXINE SODIUM 100MCG TABLET PO SCH (09:07)
[2018-08-04] MEDS: HYDROCODONE/ACETAMINOPHEN 10/325MG TABLET PO PRN (09:07)
[2018-08-04] MEDS: ENOXAPARIN 40MG/0.4ML SYR SUBCUT SCH (09:08)
[2018-08-04 12:00] VITALS: BP 138/79
[2018-08-04 16:00] VITALS: BP 171/73
[2018-08-04 20:00] VITALS: BP 176/86
[2018-08-04] MEDS: AMITRIPTYLINE 50MG TABLET PO SCH (20:23)
[2018-08-05 00:05] VITALS: BP 135/63
[2018-08-05 04:00] VITALS: BP 144/78
[2018-08-05] MEDS: HYDRALAZINE HCL 50MG TABLET PO SCH ×3 (05:26→20:05)
[2018-08-05 07:43] LABS: BASOPHILS % 1.9 % (0.0-2.0); EOSINOPHILS % 5.6 % (0.0-5.0); HEMOGLOBIN. 11.3 g/dL (12.0-16.0); LYMPHOCYTES % 36.5 % (20.0-50.0); MEAN CORPUSCULAR HEMOGLOBIN 31.8 pg (28.0-32.0); MEAN PLATELET VOLUME 8.7 fl (7.4-10.4); PLATELET 429 x1000/uL (130-400); RED BLOOD CELL COUNT 3.55 mill/uL (4.2-5.4); RED CELL DISTRIBUTION WIDTH 14.3 % (11.6-14.6)
[2018-08-05 07:57] LABS: CHLORIDE 103 mEq/L (98-107)
[2018-08-05] MEDS: PHENYTOIN SODIUM EXTENDED 100MG CAPSULE PO SCH ×3 (09:05→17:31)
[2018-08-05] MEDS: POTASSIUM CHLORIDE 20MEQ TABLET SR PO SCH ×2 (09:05→17:31)
[2018-08-05] MEDS: BENAZEPRIL 10MG TABLET PO SCH (09:05)
[2018-08-05] MEDS: METHYLPREDNISOLONE 4MG TABLET PO SCH (09:05)
[2018-08-05] MEDS: ENOXAPARIN 40MG/0.4ML SYR SUBCUT SCH (09:06)
[2018-08-05] MEDS: HYDROCHLOROTHIAZIDE 12.5MG CAPSULE PO SCH (09:06)
[2018-08-05] MEDS: LEVOTHYROXINE SODIUM 100MCG TABLET PO SCH (09:06)
[2018-08-05 12:00] VITALS: BP 157/77
[2018-08-05 16:00] VITALS: BP 167/80
[2018-08-05] MEDS: AMITRIPTYLINE 50MG TABLET PO SCH (20:08)
[2018-08-05 20:58] VITALS: BP 171/73
== END 2018-08-05 22:51 | DRG 552 ==
LOC: ER 14:35 → 7WST 17:27 → EDBEDREQ 17:31 → ENRESERV 19:29
PROVIDERS: ADMIT Internal Medicine; ATTEND Internal Medicine
DX: M47.22 Other spondylosis with radiculopathy, cervical region (principal); R07.89 Other chest pain; I10 Essential (primary) hypertension; E03.9 Hypothyroidism, unspecified; E78.5 Hyperlipidemia, unspecified; F03.90 Unspecified dementia, unspecified severity, without behavioral disturbance, psychotic disturbance, mood disturbance, and anxiety; G40.909 Epilepsy, unspecified, not intractable, without status epilepticus; I25.10 Atherosclerotic heart disease of native coronary artery without angina pectoris; J44.9 Chronic obstructive pulmonary disease, unspecified; Z96.659 Presence of unspecified artificial knee joint; M54.16 Radiculopathy, lumbar region; M19.90 Unspecified osteoarthritis, unspecified site; E05.90 Thyrotoxicosis, unspecified without thyrotoxic crisis or storm; M47.892 Other spondylosis, cervical region; Z95.0 Presence of cardiac pacemaker; Z88.8 Allergy status to other drugs, medicaments and biological substances
CPT/HCPCS: 36415; 71045; 78582; 80048; 80185; 82550; 82553; 83605; 83735; 83880; 84484; 93005; 93306; 93970; 97116; 97162; 97166; 97530; 99285; A9558; J1650; J7509